=== PATIENT | female | born 1980 | race African-American/Black ===

== ENCOUNTER 2023-01-15 03:40 | Emergency (ER) | payer OTHER ==
[~2023-01-15] VITALS: Ht 176.5 cm; Wt 180.5 kg
[2023-01-15 05:02] LABS: BASOPHILS % 0.4 % (0.0-2.0); HEMATOCRIT. 34.4 % (36.0-48.0); HEMOGLOBIN. 10.9 g/dL (12.0-16.0); LYMPHOCYTES % 14.4 % (20.0-50.0); MEAN CORPUSCULAR HEMOGLOBIN 25.1 pg (28.0-32.0); MEAN CORPUSCULAR VOLUME 78.9 fL (81.0-99.0); MEAN PLATELET VOLUME 8.2 fl (7.4-10.4); MONOCYTES % 4.6 % (2.0-8.0); NEUTROPHILS % 79.6 % (40.0-76.0); PLATELET 354 x1000/uL (130-400); RED BLOOD CELL COUNT 4.36 mill/uL (4.2-5.4); RED CELL DISTRIBUTION WIDTH 17.5 % (11.6-14.6)
[2023-01-15 05:05] LABS: CLARITY URINE TURBID (CLEAR); COLOR URINE YELLOW (YELLOW); KETONES URINE TRACE (NEGATIVE); LEUKOCYTE ESTERASE URINE 3+ (NEGATIVE); NITRITE URINE POSITIVE (NEGATIVE); OCCULT BLOOD URINE 2+ (NEGATIVE); PH URINE 5.5 (4.5-8.0); PROTEIN URINE 3+ (NEGATIVE); SPECIFIC GRAVITY URINE 1.019 (1.005-1.030)
[2023-01-15 05:20] LABS: CHLORIDE 104 mEq/L (98-107)
[2023-01-15] MEDS ORDERED: SODIUM CHLORIDE 0.9% 1,000 ML IV ONE (05:45)
[2023-01-15] MEDS ORDERED: ONDANSETRON HCL 4MG/2ML INJ IV ONE (05:45)
[2023-01-15] MEDS ORDERED: CEFTRIAXONE 1GM PREMIX 50 ML IV NR (06:30)
[2023-01-15 06:45] LABS: PROTHROMBIN TIME 10.9 sec (9.6-11.0)
[2023-01-15 07:00] VITALS: BP 115/59
[2023-01-15] MEDS ORDERED: CEFP200T13 MT (07:09)
[2023-01-15 08:25] LABS: HCG SCREEN NEGATIVE
== END 2023-01-15 07:30 | disposition home or self-care (01) ==
LOC: ER 03:40
DX: N39.0 Urinary tract infection, site not specified (principal); I10 Essential (primary) hypertension; E11.9 Type 2 diabetes mellitus without complications; Z98.890 Other specified postprocedural states
CPT/HCPCS: 36415; 80053; 81003; 81025; 83690; 84484; 84703; 85025; 85610; 87086; 96365; 96375; 99284; J0696; J2405; J7030; Z7610